=== PATIENT | female | born 1980 | race Caucasian/White ===

== ENCOUNTER 2016-11-19 22:04 | Emergency (ER) | payer OTHER, MEDICAID ==
[2016-11-19 22:31] LABS: BILIRUBIN NEGATIVE (NEGATIVE); BLOOD 1+ Ery/uL (NEGATIVE); CLARITY CLEAR (CLEAR); COLOR YELLOW (YELLOW); GLUCOSE (U) NORMAL (NORMAL); KETONE (U) NEGATIVE (NEGATIVE); LEUKOCYTES NEGATIVE Leu/uL (NEGATIVE); NITRITE NEGATIVE (NEGATIVE); PROTEIN NEGATIVE (NEGATIVE); SPECIFIC GRAVITY >=1.030 (1.001-1.030); UROBILINOGEN 0.2 mg/dL (0.2-1.0)
[2016-11-19 22:35] LABS: BACTERIA TRACE
== END 2016-11-20 00:18 | disposition home or self-care (01) ==
LOC: FER 22:04
PROVIDERS: Emergency Medicine
DX: S90.821A Blister (nonthermal), right foot, initial encounter (principal); I10 Essential (primary) hypertension; F17.200 Nicotine dependence, unspecified, uncomplicated; Z79.899 Other long term (current) drug therapy
CPT/HCPCS: 73630; 81001

== ENCOUNTER 2021-11-03 20:12 | Emergency (ER) | payer OTHER ==
[~2021-11-03 20:12] MED LIST: ATENOLOL25 MG PO; CATAPRES0.1 MG PO; NAPROXEN500 MG PO; VISTARIL25 MG PO; ZOLOFT100 MG PO
[2021-11-03 20:41] LABS: BASOPHIL 0.4 % (0-2); EOSINOPHIL 0.9 % (0-5); HCT 30.7 % (37.0-47.0); HGB 8.3 g/dl (12.5-16.0); LYMPHOCYTE 7.5 % (15-48); MCH 19.4 pg (25.0-31.0); MCV 71.7 fL (78.0-100.0); MPV 9.6 fL (6.0-9.5); NEUTROPHIL 84.7 % (41-80); NRBC 0; PLT 253 K/uL (150-400); RBC 4.28 M/uL (4.20-5.40); RDW 21.4 % (11.5-14.0); WBC 15.9 K/uL (4.0-10.5)
[2021-11-03 20:59] LABS: INR 1.25 (0.9-1.2)
[2021-11-03 21:03] LABS: ALBUMIN 3.4 g/dL (3.4-5.0); BILIRUBIN - TOTAL 1.3 mg/dL (0.2-1.0); BUN/CREAT RATIO (CALC) 20.3 RATIO; CREATININE 1.38 mg/dL (0.51-0.95); GLOBULIN (CALCULATION) 3.7 g/dL; POTASSIUM 3.7 mmol/L (3.5-5.1); TOTAL PROTEIN 7.1 g/dL (6.4-8.2)
[2021-11-03 22:20] LABS: LACTIC ACID 1.3 mmol/L (0.4-1.9)
== END 2021-11-03 22:53 | disposition other institution (70) ==
LOC: FER 20:12
PROVIDERS: Emergency Medicine
DX: R07.89 Other chest pain (principal); I71.03 Dissection of thoracoabdominal aorta; I61.0 Nontraumatic intracerebral hemorrhage in hemisphere, subcortical; D64.9 Anemia, unspecified; N17.9 Acute kidney failure, unspecified; I10 Essential (primary) hypertension; F17.200 Nicotine dependence, unspecified, uncomplicated
CPT/HCPCS: 31500; 36415; 70450; 71275; 72193; 80053; 83605; 84484; 85025; 85610; 86850; 86900; 86901; 87040; 93005; 94002; 96361; 96374; 96375; 96376; J0692; J2250; J2405; J3010; J7030; Q9967